=== PATIENT | male | born 1985 | race African-American/Black ===

== ENCOUNTER 2021-10-06 02:32 | Emergency (ER) | payer SELFPAY ==
[~2021-10-06] VITALS: Ht 177.8 cm; Wt 78.0 kg
[2021-10-06] MEDS: NALOXONE HCL 0.4 MG/ML 1ML VIAL IM ONE ×2 (04:13→04:17)
[2021-10-06] MEDS ORDERED: NALO4SPR BOTHNSTRLS (04:18)
[2021-10-06 07:30] VITALS: BP 126/71
== END 2021-10-06 04:50 ==
LOC: ER 02:32
DX: T40.412A Poisoning by fentanyl or fentanyl analogs, intentional self-harm, initial encounter (principal); Y92.9 Unspecified place or not applicable; Z88.0 Allergy status to penicillin
CPT/HCPCS: 99283; J2310